=== PATIENT | female | born 1955 | race Caucasian/White ===

== ENCOUNTER 2020-09-13 09:56 | Inpatient (IN) | payer BC, MEDICARE, SELFPAY ==
[2020-09-13] VITALS (21 sets, daily range): BP systolic 95–134; BP diastolic 45–83; PULSE 85–118; RESP 13–25; TEMP 36–37; O2SAT 97–100; BMI 22.8
--- NOTE | ~2020-09-13 | US_ITS ---
EXAMINATION: US abdomen limited DATE: 09/17/2020 09:50 INDICATION: Elevated liver enzymes TECHNIQUE: Multiple grayscale and Doppler ultrasound images of the abdomen were obtained. COMPARISON: 12/22/2013 FINDINGS: The head and body of the pancreas are normal. The pancreatic tail is obscured by bowel gas. The liver demonstrates increased echogenicity and coarsened echotexture. There is nodularity of the liver surface. A moderate volume of ascites is present. Normal hepatopetal flow in the main portal ve in. The gallbladder is surgically absent. The normal common bile duct measures 5 mm. IMPRESSION: 1. Cirrhosis. 2. Ascites. Reviewed, dictated and finalized at location A. IMPRESSION: 1. Cirrhosis. 2. Ascites.
--- NOTE | ~2020-09-13 | XR_ITS ---
EXAMINATION: XR chest 1V portable DATE: 09/13/2020 10:50 INDICATION: Altered mental status and weakness. TECHNIQUE: frontal view of the chest was obtained. COMPARISON: Chest radiograph dated 02/04/2016 FINDINGS: The lungs remain clear with no focal airspace opacities, pulmonary edema, pleural effusion or pneumot horax. The cardiomediastinal silhouette is normal. Cholecystectomy clips in right upper quadrant. Par tially visualized IVC filter projecting along the right side of the L3 vertebral body. Moderate cervi ajyden and thoracic spondylosis. IMPRESSION: 1. No acute cardiopulmonary disease. Reviewed, dictated and finalized at location A.
--- NOTE | ~2020-09-13 | XR_ITS ---
EXAMINATION: XR foot RT min 3V DATE: 09/13/2020 12:44 INDICATION: Open wound on the plantar surface of the distal right forefoot. TECHNIQUE: Dorsoplantar, oblique and lateral views of the right foot were obtained. COMPARISON: None. FINDINGS: Lucent deep ulceration in the soft tissues plantar to the fifth metatarsophalangeal joint. Bone align ment is normal. No fracture. No cortical erosions or periosteal reaction to suggest osteomyelitis. Mo derate-sized plantar calcaneal spur. Minimal to mild polyarticular osteoarthritis throughout the righ t foot. Diffuse osteopenia. IMPRESSION: 1. Deep ulceration plantar to the right fifth metatarsophalangeal joint. No evident osteomyelitis. Reviewed, dictated and finalized at location A. IMPRESSION: 1. Deep ulceration plantar to the right fifth metatarsophalangeal joint. No jair dent osteomyelitis.
--- NOTE | ~2020-09-13 | CT_ITS ---
EXAMINATION: CTA chest PE protocol DATE: 09/23/2020 17:06 INDICATION: Tachycardia. Lung mass. TECHNIQUE: Computed tomography (CT) pulmonary angiogram of the chest was performed with 100 mL Omnipa que-350 intravenous contrast. Additional 3D reconstructions utilizing coronal maximum intensity proje ction (MIP) were performed. Automated exposure control and iterative reconstruction technique were em ployed. The dose-length product was 247.56 mGy-cm. COMPARISON: 12/09/2004 FINDINGS: Good contrast opacification of the pulmonary arteries. There is mild streak artifact from dense contr ast in the superior vena cava and right atrium. Mild scattered respiratory motion artifact which does not significantly limit evaluation. No pulmonary embolism. Moderate-sized left and small to moderate right pleural effusions. Complete collapse of the left lower lobe, partial collapse of the right low er lobe and mild dependent atelectasis in the posterior left upper lobe. There is homogeneous parench ymal enhancement of the collapsed portion of the lungs with no evident infarct. No pulmonary edema, p neumonia or other airspace disease within the aerated portions of the lung. There are few scattered s mall calcified pulmonary nodules along with calcified right hilar and mediastinal lymph nodes consist ent with old granulomatous disease. Heart size is normal. No pericardial effusion. Multinodular goite r with a couple nodules in the right thyroid measuring up to 9 mm. No pathologically enlarged thoraci c lymphadenopathy. Shrunken and nodular cirrhotic liver. Splenomegaly consistent with secondary port al venous hypertension. Small sliding-type hiatal hernia with wall thickening in the distal esophagus which could be related to reflux esophagitis or potentially gastroesophageal varices. Mesenteric pily ma and moderate amount of ascites in the visualized upper abdomen. Moderate thoracic spondylosis. IMPRESSION: 1. No pulmonary embolism. 2. Moderate-sized left and [id number] right pleural effusions with left lower lobar collapse, partial right lower lobar collapse and mild dependent atelectasis in the bilateral lower lobes. 3. Cirrhosis and portal venous hypertension with splenomegaly. 4. Small sliding-type hiatal hernia with wall thickening the distal esophagus which could relate to r eflux esophagitis or gastroesophageal varices. 5. Moderate amount of ascites in the upper abdomen. Reviewed, dictated and finalized at location A. IMPRESSION: 1. No pulmonary embolism. 2. Moderate-sized left and [id number] right pleural effusions with left lower lobar collapse, partial right lower lobar collapse and mild dependent ate lectasis in the bilateral lower lobes. 3. Cirrhosis and portal venous hypertension with splenomegaly. 4. Small sliding-type hiatal hernia with wall thickening the distal esophagus w hich could relate to reflux esophagitis or gastroesophageal varices. 5. Moderate amount of ascites in the upper abdomen.
--- NOTE | ~2020-09-13 | US_ITS ---
EXAMINATION: US paracentesis abd w/image DATE: 09/23/2020 16:58 INDICATION: Ascites. TECHNIQUE: The procedure and its risks, benefits, and alternatives were discussed with the patient. P otential risks discussed included bleeding and infection. The skin was prepped and draped in sterile fashion. 1% lidocaine was used for local anesthesia. Under ultrasound guidance, a 5 Fr catheter with trochar was advanced into the ascites in the left lower quadrant. Fluid was aspirated. The catheter w as removed, and a dressing was applied. There were no immediate complications. FINDINGS: Ultrasound images demonstrate ascites and the catheter within the fluid. IMPRESSION: 1. Successful ultrasound-guided paracentesis yielding 2050 mL of clear, yellow fluid. Reviewed, dictated and finalized at location A.
--- NOTE | ~2020-09-13 | CT_ITS ---
EXAMINATION: CT brain wo con DATE: 09/13/2020 12:37 INDICATION: Altered mental status. TECHNIQUE: Computed tomography (CT) of the head was performed without intravenous contrast. Sagittal and coronal reconstructions were performed. The mA was adjusted according to patient size. Iterative reconstruction technique was employed. The dose-length product was 605.33 mGy-cm. COMPARISON: head CT dated 02/04/2016 FINDINGS: Streak artifact surrounding an embolization coil in the suprasellar cistern to the left of midline. U nchanged small old lacunar infarct versus prominent perivascular space at the left lentiform nucleus. No acute intracranial hemorrhage, acute infarction or abnormal extra axial fluid collection. There i s mild scattered white matter hypoattenuation consistent with chronic small vessel ischemic disease. Ventricles are normal and symmetric. No mass/mass effect. The orbits, paranasal sinuses and mastoid a ir cells are normal. IMPRESSION: 1. No acute intracranial process. 2. Unchanged old lacunar infarct versus prominent perivascular space in the left lentiform nucleus. 3. Unchanged mild scattered nonspecific white matter hypoattenuation consistent with chronic small ve ssel ischemic disease. 4. Chronic embolization coil the left side of the suprasellar cistern. Correlate with neurosurgical h istory. Reviewed, dictated and finalized at location A. IMPRESSION: 1. No acute intracranial process. 2. Unchanged old lacunar infarct versus prominent perivascular space in the lef t lentiform nucleus. 3. Unchanged mild scattered nonspecific white matter hypoattenuation consistent with chronic small vessel ischemic disease. 4. Chronic embolization coil the left side of the suprasellar cistern. Correlat e with neurosurgical history.
--- NOTE | 2020-09-13 10:07 | PC.NURSE ---
Noted several ulcers to right foot/right hip. unaware when these began.
--- NOTE | 2020-09-13 10:09 | ECG_ITS ---
Measurements Intervals [place] Rate: 114 P: 77 IL: 146 QRS: 78 QRSD: 98 T: -4 QT: 365 QTc: 504 Interpretive Statements SINUS TACHYCARDIA ATRIAL AND VENTRICULAR PREMATURE COMPLEXES NONSPECIFIC ST & T-WAVE ABNORMALITY- ANTEROLAT/INF LEADS BASELINE ARTIFACT- I, II, III, AVR, AVL, AVF, V1-V6 ABNORMAL ECG Electronically Signed On 09-13-2020 10:51:41 CDT by Josh Feldman D.O.
[2020-09-13 10:26] LABS: Basophils Absolute Auto 0.1 K/mm3 (0.0-0.1); Basophils Percent Auto 0.3 % (0.2-1.2); Eosinophils Absolute Auto 0.2 K/mm3 (0-0.3); Eosinophils Percent Auto 0.7 % (0-4.4); Hematocrit 34.4 % (37.0-47.0); Hemoglobin 11.1 g/dL (12.0-15.0); Immature Granulocyte Absolute 0.28 K/mm3 (0.00-0.031); Immature Granulocyte Percent A 1.1 % (0-0.5); Lymphocytes Absolute Auto 1.36 K/mm3 (0.9-3.2); Lymphocytes Percent Auto 5.5 % (18.3-44.2); Mean Corpuscular HGB Conc 32.3 g/dl (32-36); Mean Corpuscular Hemoglobin 27.2 pg (26-34); Mean Corpuscular Volume 84.3 fl (80-100); Mean Platelet Volume 9.4 fl (7.4-10.4); Monocytes Absolute Auto 3.1 K/mm3 (0.1-0.6); Monocytes Percent Auto 12.5 % (2.6-8.5); Neutrophils Absolute Auto 19.8 K/mm3 (1.3-6.7); Neutrophils Percent Auto 79.9 % (45.5-73.1); Platelet Count Result 171 k/mm3 (150-375); Red Blood Count 4.08 M/mm3 (4.2-5.4); Red Cell Distribution Width 16.1 % (11.5-14.5); White Blood Count 24.8 K/mm3 (4.5-10.0)
[2020-09-13 10:33] LABS: Lactic Acid Reflex 1.9 mmol/L (0.7-2.1)
[2020-09-13 10:44] LABS: INR 1.5; Partial Thromboplastin Time 29.1 SECONDS (22.3-36.8); Prothrombin Time 18.2 Seconds (11.1-14.7)
[2020-09-13 10:50] LABS: Alanine Aminotransferase 81 U/L (4-35); Albumin Level 2.6 g/dL (3.5-5.1); Alkaline Phosphatase 65 U/L (38-126); Anion Gap 9 mmol/L (8-16); Aspartate Amino Transferase 73 U/L (14-36); Bilirubin,Total 0.8 mg/dL (0.2-1.3); Blood Urea Nitrogen 31 mg/dL (7-17); CRP 7.9 mg/dL (<1.0); Calcium 8.3 mg/dL (8.4-10.2); Carbon Dioxide 22 mmol/L (22-30); Chloride 102 mmol/L (98-107); Estimated CRCL calculation 62 ml/min; Estimated Glomerular Filt Rate > 60; Glucose 82 mg/dL (65-110); Potassium 3.9 mmol/L (3.4-5.0); Sodium 133 mmol/L (137-145)
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
[2020-09-13 10:58] LABS: Add Urine Microscopic? YES; Appearance Urine Clear (Clear); Bilirubin Urine Negative (Negative); Blood Urine Negative (Negative); Color Urine Amber (Yellow); Glucose Urine UA Negative (Negative); Ketones Urine Negative (Negative); Leukocyte Esterase Ur Trace LEU/UL (Negative); Mucus Urine Rare /lpf; Nitrate Urine Negative (Negative); Protein Urine Negative (Negative); Squamous Epithelial Cell Urine Rare /hpf (Few)
[2020-09-13 11:03] LABS: Platelet Estimate Adequate (Adequate); Poikilocytosis 1+ (NORMAL)
[2020-09-13 11:04] LABS: Ovalocytes 1+ (NORMAL)
[2020-09-13 12:55] LABS: Creatine Kinase 899 U/L (30-135)
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
[2020-09-13] MEDS: SODIUM CHLORIDE 0.9% IV 1,000 ML 999 ML IV CONT (14:00)
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
[2020-09-13] MEDS: SODIUM CHLORIDE 0.9% IV 1,000 ML 125 ML IV CONT (17:15)
--- NOTE | 2020-09-13 19:15 | PC.NURSE ---
[id number] Admission Note: The patient,Xochitl Riley,64 y/o, was given written information regarding hospital policies, unit procedures and contact persons. Patient's smoking status: .
[2020-09-13] MEDS: TOLNAFTATE 1% POWDER 45 GM BTL 1 APPLIC TOPICAL (20:50)
[2020-09-13] MEDS: SILVERGEL (ELTA) 45 ML 1 APPLIC TOPICAL (20:50)
[2020-09-13] MEDS: HYDROGEN PEROXIDE 3% SOLN(*SP) 473 ML BOTTLE IRRIGATION (20:58)
[2020-09-13] MEDS: MORPHINE SULFATE (*CRX) 4 MG/ML INJ 2 MG IV PUSH (21:20)
[2020-09-14] MEDS: SODIUM CHLORIDE 0.9% IV 1,000 ML 125 ML IV CONT ×2 (04:49→16:40)
[2020-09-14 05:12] VITALS: BP 131/61; PULSE 105; RESP 18; TEMP 37.3; O2SAT 97
[2020-09-14] MEDS: MORPHINE SULFATE (*CRX) 4 MG/ML INJ 2 MG IV PUSH ×3 (05:39→17:29)
[2020-09-14 05:41] LABS: Basophils Percent Auto 0.1 % (0.2-1.2); Eosinophils Absolute Auto 0.8 K/mm3 (0-0.3); Eosinophils Percent Auto 5.5 % (0-4.4); Hematocrit 30.4 % (37.0-47.0); Hemoglobin 10.1 g/dL (12.0-15.0); Immature Granulocyte Absolute 0.08 K/mm3 (0.00-0.031); Immature Granulocyte Percent A 0.6 % (0-0.5); Lymphocytes Absolute Auto 1.99 K/mm3 (0.9-3.2); Lymphocytes Percent Auto 13.7 % (18.3-44.2); Mean Corpuscular HGB Conc 33.2 g/dl (32-36); Mean Corpuscular Hemoglobin 27.3 pg (26-34); Mean Corpuscular Volume 82.2 fl (80-100); Mean Platelet Volume 9.5 fl (7.4-10.4); Monocytes Absolute Auto 2.2 K/mm3 (0.1-0.6); Monocytes Percent Auto 15.1 % (2.6-8.5); Neutrophils Absolute Auto 9.4 K/mm3 (1.3-6.7); Platelet Count Result 158 k/mm3 (150-375); White Blood Count 14.5 K/mm3 (4.5-10.0)
[2020-09-14 05:51] LABS: Alanine Aminotransferase 67 U/L (4-35); Albumin Level 2.1 g/dL (3.5-5.1); Alkaline Phosphatase 61 U/L (38-126); Anion Gap 7 mmol/L (8-16); Aspartate Amino Transferase 49 U/L (14-36); Bilirubin,Total 0.6 mg/dL (0.2-1.3); Blood Urea Nitrogen 17 mg/dL (7-17); Calcium 7.8 mg/dL (8.4-10.2); Carbon Dioxide 22 mmol/L (22-30); Chloride 105 mmol/L (98-107); Creatine Kinase 307 U/L (30-135); Estimated CRCL calculation 62 ml/min; Estimated Glomerular Filt Rate > 60; Glucose 69 mg/dL (65-110); Potassium 3.2 mmol/L (3.4-5.0); Sodium 134 mmol/L (137-145)
[2020-09-14 07:58] LABS: Glucose Point of Care 78 mg/dl (65-105)
[2020-09-14] MEDS: MULTIVITAMINS THERAPEUTIC TAB (*BKC) 1 TABLET BY MOUTH (08:02)
[2020-09-14] MEDS: FERROUS SULFATE 324 MG TABLET PO (08:02)
[2020-09-14 08:05] LABS: Magnesium 1.6 mg/dL (1.6-2.3)
[2020-09-14] MEDS: TOLNAFTATE 1% POWDER 45 GM BTL 1 APPLIC TOPICAL ×2 (08:06→22:48)
[2020-09-14] MEDS: SILVER NITRATE (*SP) STICK 3 EACH TOPICAL (11:00)
[2020-09-14] MEDS: LIDO 2%/EPINEPHRINE 1:100,000 20 ML VIAL 30 ML INFILTRATE (11:08)
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
[2020-09-14] MEDS: COLLAGENASE OINT 30 GM TUBE 1 APPLIC TOPICAL (12:57)
--- NOTE | 2020-09-14 13:11 | PCOTNOTE ---
Attempted OT evaluation this date; per RN hold today as pt. is in a lot of pain and recently returned from debridement surgery. Will attempt again tomorrow as able.
--- NOTE | 2020-09-14 13:55 | PCPTNOTE ---
Attempted PT evvenus. RN stated to hold therapy due to debridement. Will try again tomorrow.
[2020-09-14 14:00] VITALS: BP 106/70; PULSE 116; RESP 20; TEMP 36.1; O2SAT 100
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
[2020-09-14] MEDS: HYDROcodone/acetaminophen (*CRX) 5-325 MG TABLET 1 TAB PO ×2 (15:00→19:41)
[2020-09-14] MEDS: LACTIC ACID 12% LOTION 225 BTL 1 APPLIC TOPICAL (16:41)
[2020-09-14 19:34] VITALS: BP 125/71; PULSE 66; RESP 17; TEMP 36.1; O2SAT 97
[2020-09-15 02:38] LABS: Vancomycin Trough 12.5 ug/mL (10.0-20.0)
[2020-09-15] MEDS: MORPHINE SULFATE (*CRX) 4 MG/ML INJ 2 MG IV PUSH ×3 (03:01→20:24)
[2020-09-15] MEDS: SODIUM CHLORIDE 0.9% IV 1,000 ML 125 ML IV CONT ×2 (03:04→13:48)
[2020-09-15 05:59] VITALS: BP 132/83; PULSE 87; RESP 17; TEMP 36.5; O2SAT 98
[2020-09-15] MEDS: HYDROcodone/acetaminophen (*CRX) 5-325 MG TABLET 1 TAB PO ×2 (06:31→22:55)
[2020-09-15 06:37] LABS: Hematocrit 32.7 % (37.0-47.0); Hemoglobin 10.1 g/dL (12.0-15.0); Mean Corpuscular HGB Conc 30.9 g/dl (32-36); Mean Corpuscular Hemoglobin 26.7 pg (26-34); Mean Corpuscular Volume 86.5 fl (80-100); Mean Platelet Volume 9.3 fl (7.4-10.4); Platelet Count Result 127 k/mm3 (150-375); Red Blood Count 3.78 M/mm3 (4.2-5.4); Red Cell Distribution Width 16.3 % (11.5-14.5); White Blood Count 12.6 K/mm3 (4.5-10.0)
[2020-09-15 06:51] LABS: Estimated CRCL calculation 73 ml/min; Estimated Glomerular Filt Rate > 60; Magnesium 1.5 mg/dL (1.6-2.3)
[2020-09-15] MEDS: MULTIVITAMINS THERAPEUTIC TAB (*BKC) 1 TABLET BY MOUTH (07:48)
[2020-09-15] MEDS: TOLNAFTATE 1% POWDER 45 GM BTL 1 APPLIC TOPICAL (07:48)
[2020-09-15] MEDS: LACTIC ACID 12% LOTION 225 BTL 1 APPLIC TOPICAL (07:48)
[2020-09-15] MEDS: ENOXAPARIN 40 MG/0.4 ML SYRINGE SUB-Q (07:48)
[2020-09-15] MEDS: FERROUS SULFATE 324 MG TABLET PO (07:48)
[2020-09-15 10:00] VITALS: BMI 10.0
[2020-09-15 11:08] VITALS: BMI 22.8
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
[2020-09-15] MEDS: COLLAGENASE OINT 30 GM TUBE 1 APPLIC TOPICAL (13:05)
[2020-09-15] MEDS: MAGNESIUM SULF 4 GM/WATER100ML 4 GM/100 ML BAG IVPB (13:48)
[2020-09-15 14:00] VITALS: BP 104/62; PULSE 114; RESP 18; TEMP 35.7; O2SAT 97
[2020-09-15] MEDS: WATER FOR IRRIGATION, STERILE 1,000 ML BOTTLE 1000 ML (16:54)
[2020-09-15 19:50] VITALS: BP 146/81; PULSE 113; RESP 20; TEMP 36.4; O2SAT 97
[2020-09-15 19:56] LABS: Prealbumin < 3.0 mg/dL (17.6-36.0)
[2020-09-15 21:14] VITALS: O2SAT 97
[2020-09-16] MEDS: SODIUM CHLORIDE 0.9% IV 1,000 ML 125 ML IV CONT ×3 (01:13→20:23)
[2020-09-16] MEDS: MORPHINE SULFATE (*CRX) 4 MG/ML INJ 2 MG IV PUSH ×4 (02:52→20:22)
[2020-09-16] MEDS: HYDROcodone/acetaminophen (*CRX) 5-325 MG TABLET 1 TAB PO (05:27)
[2020-09-16 05:30] VITALS: BP 153/87; PULSE 118; RESP 16; TEMP 36.6; O2SAT 96
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
[2020-09-16 09:58] LABS: Hematocrit 32.6 % (37.0-47.0); Hemoglobin 10.2 g/dL (12.0-15.0); Mean Corpuscular HGB Conc 31.3 g/dl (32-36); Mean Corpuscular Hemoglobin 26.8 pg (26-34); Mean Corpuscular Volume 85.6 fl (80-100); Mean Platelet Volume 9.8 fl (7.4-10.4); Platelet Count Result 124 k/mm3 (150-375); Red Blood Count 3.81 M/mm3 (4.2-5.4); Red Cell Distribution Width 16.1 % (11.5-14.5); White Blood Count 10.4 K/mm3 (4.5-10.0)
[2020-09-16] MEDS: SILVERGEL (ELTA) 45 ML 1 APPLIC TOPICAL (10:00)
[2020-09-16] MEDS: LACTIC ACID 12% LOTION 225 BTL 1 APPLIC TOPICAL (10:00)
[2020-09-16] MEDS: COLLAGENASE OINT 30 GM TUBE 1 APPLIC TOPICAL (10:00)
[2020-09-16 10:16] LABS: Alanine Aminotransferase 59 U/L (4-35); Albumin Level 2.2 g/dL (3.5-5.1); Alkaline Phosphatase 61 U/L (38-126); Anion Gap 4 mmol/L (8-16); Aspartate Amino Transferase 42 U/L (14-36); Bilirubin,Total 0.4 mg/dL (0.2-1.3); Blood Urea Nitrogen 12 mg/dL (7-17); Calcium 7.3 mg/dL (8.4-10.2); Carbon Dioxide 24 mmol/L (22-30); Chloride 107 mmol/L (98-107); Estimated CRCL calculation 89 ml/min; Estimated Glomerular Filt Rate > 60; Glucose 91 mg/dL (65-110); Potassium 3.8 mmol/L (3.4-5.0); Sodium 135 mmol/L (137-145)
[2020-09-16] MEDS: ENOXAPARIN 40 MG/0.4 ML SYRINGE SUB-Q (10:30)
[2020-09-16] MEDS: FERROUS SULFATE 324 MG TABLET PO (10:30)
[2020-09-16] MEDS: MULTIVITAMINS THERAPEUTIC TAB (*BKC) 1 TABLET BY MOUTH (10:30)
--- NOTE | 2020-09-16 10:34 | PCPTNOTE ---
Attempted therapy session at 10:30, Pt refused at this time due to just finishing with dressing changes and has increased pain. Will attempt therapy again.
[2020-09-16 14:27] VITALS: BP 146/84; PULSE 119; RESP 16; TEMP 35.6
[2020-09-16 16:23] LABS: Vancomycin Trough 16.1 ug/mL (10.0-20.0)
[2020-09-16 17:00] VITALS: TEMP 36.8
[2020-09-16 20:46] VITALS: BP 158/94; PULSE 123; RESP 18; TEMP 36.7; O2SAT 94
[2020-09-17] MEDS: SODIUM CHLORIDE 0.9% IV 1,000 ML 125 ML IV CONT (05:10)
[2020-09-17 05:19] VITALS: BP 156/83; PULSE 120; RESP 20; TEMP 36.4; O2SAT 95
[2020-09-17] MEDS: ENOXAPARIN 40 MG/0.4 ML SYRINGE SUB-Q (07:58)
[2020-09-17] MEDS: FERROUS SULFATE 324 MG TABLET PO (07:59)
[2020-09-17] MEDS: MULTIVITAMINS THERAPEUTIC TAB (*BKC) 1 TABLET BY MOUTH (07:59)
[2020-09-17] MEDS: COLLAGENASE OINT 30 GM TUBE 1 APPLIC TOPICAL (07:59)
[2020-09-17] MEDS: LACTIC ACID 12% LOTION 225 BTL 1 APPLIC TOPICAL (08:00)
--- NOTE | 2020-09-17 08:39 | ECG_ITS ---
Measurements Intervals [place] Rate: 116 P: 19 AK: 142 QRS: 19 QRSD: 89 T: 34 QT: 333 QTc: 463 Interpretive Statements SINUS TACHYCARDIA NONSPECIFIC ST & T-WAVE ABNORMALITY- DIFFUSE LEADS BASELINE ARTIFACT- V5 ABNORMAL ECG Electronically Signed On 09-17-2020 9:10:18 CDT by Josh Feldman D.O.
[2020-09-17 09:35] LABS: INR 1.5; Prothrombin Time 17.5 Seconds (11.1-14.7)
[2020-09-17 10:07] LABS: Magnesium 1.7 mg/dL (1.6-2.3)
[2020-09-17 10:36] LABS: Creatine Kinase 150 U/L (30-135)
[2020-09-17 10:44] LABS: Hepatitis B Surface Antigen Negative (Negative)
[2020-09-17 10:49] LABS: HAV RESULT Negative (Negative); Hepatitis B Core IgM Result Negative (Negative)
[2020-09-17 11:01] LABS: Hepatitis C Virus Antibody Negative (Negative)
[2020-09-17] MEDS: HYDROcodone/acetaminophen (*CRX) 5-325 MG TABLET 1 TAB PO ×2 (12:07→21:17)
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
[2020-09-17 13:59] VITALS: PULSE 82
[2020-09-17] MEDS: METOPROLOL SUCCINATE EXT REL 50 MG TABCR PO (13:59)
[2020-09-17 14:00] VITALS: BP 147/101; PULSE 119; RESP 20; TEMP 35.9; O2SAT 96
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
[2020-09-17 21:14] VITALS: BP 148/90; PULSE 112; RESP 16; TEMP 36.3; O2SAT 98
[2020-09-17 21:55] VITALS: O2SAT 95
[2020-09-18] MEDS: MORPHINE SULFATE (*CRX) 4 MG/ML INJ 2 MG IV PUSH (00:24)
[2020-09-18 06:00] VITALS: BP 170/96; PULSE 96; RESP 20; TEMP 36.6; O2SAT 97
[2020-09-18 06:07] LABS: Basophils Percent Auto 0.4 % (0.2-1.2); Eosinophils Absolute Auto 0.7 K/mm3 (0-0.3); Hematocrit 35.5 % (37.0-47.0); Hemoglobin 11.3 g/dL (12.0-15.0); Immature Granulocyte Absolute 0.08 K/mm3 (0.00-0.031); Immature Granulocyte Percent A 0.8 % (0-0.5); Lymphocytes Absolute Auto 1.41 K/mm3 (0.9-3.2); Mean Corpuscular HGB Conc 31.8 g/dl (32-36); Mean Corpuscular Volume 84.7 fl (80-100); Mean Platelet Volume 9.9 fl (7.4-10.4); Monocytes Absolute Auto 1.6 K/mm3 (0.1-0.6); Monocytes Percent Auto 15.5 % (2.6-8.5); Neutrophils Absolute Auto 6.3 K/mm3 (1.3-6.7); Neutrophils Percent Auto 62.3 % (45.5-73.1); Platelet Count Result 112 k/mm3 (150-375); Red Blood Count 4.19 M/mm3 (4.2-5.4); White Blood Count 10.1 K/mm3 (4.5-10.0)
[2020-09-18 06:29] LABS: Alanine Aminotransferase 51 U/L (4-35); Albumin Level 2.3 g/dL (3.5-5.1); Alkaline Phosphatase 85 U/L (38-126); Anion Gap 2 mmol/L (8-16); Aspartate Amino Transferase 38 U/L (14-36); Bilirubin,Total 0.5 mg/dL (0.2-1.3); Blood Urea Nitrogen 14 mg/dL (7-17); CRP 3.4 mg/dL (<1.0); Calcium 7.8 mg/dL (8.4-10.2); Carbon Dioxide 27 mmol/L (22-30); Chloride 105 mmol/L (98-107); Estimated CRCL calculation 73 ml/min; Estimated Glomerular Filt Rate > 60; Glucose 95 mg/dL (65-110); Magnesium 1.7 mg/dL (1.6-2.3); Potassium 3.8 mmol/L (3.4-5.0); Sodium 134 mmol/L (137-145)
[2020-09-18 08:15] VITALS: PULSE 96
[2020-09-18] MEDS: MULTIVITAMINS THERAPEUTIC TAB (*BKC) 1 TABLET BY MOUTH (08:15)
[2020-09-18] MEDS: FERROUS SULFATE 324 MG TABLET PO (08:15)
[2020-09-18] MEDS: METOPROLOL SUCCINATE EXT REL 50 MG TABCR PO (08:15)
[2020-09-18] MEDS: HYDROcodone/acetaminophen (*CRX) 5-325 MG TABLET 1 TAB PO ×2 (08:18→17:07)
[2020-09-18] MEDS: ENOXAPARIN 40 MG/0.4 ML SYRINGE SUB-Q (08:24)
[2020-09-18] MEDS: LACTIC ACID 12% LOTION 225 BTL 1 APPLIC TOPICAL (08:25)
[2020-09-18] MEDS: COLLAGENASE OINT 30 GM TUBE 1 APPLIC TOPICAL (08:25)
[2020-09-18] MEDS: lisinopriL 20 MG TABLET 40 MG PO (10:18)
--- NOTE | 2020-09-18 10:23 | PCNFU ---
Nutrition Follow-Up Complete: Increased protein needs as related to wounds as evidenced by PU reported. Goal: Adequate Intake of at least 75% of meals/supplements Progressing towards goal. We will continue current goal. Pt current nutrition is Heart Healthy with Jose BID and Ensure Compact BID. Last recorded weight is 56.6 kg, no new weight to report since admit. Bowel Motility:+BM reported 09/17 Labs Reviewed:Cr 0.5,Hct 35.5,Hgb 11.3,Na 134 Meds Noted:MVI,Zofran,Toprol, Lovenox,Primaxin. Additional Notes: Nutrition follow up. Patient eating breakfast this morning. States to likes both diet supplements being provided. Overall intake has been 75% of heart healthy diet. Skin: Decub ulcer-buttock. Monitoring: RD will monitor every 5 days.
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
[2020-09-18 14:00] VITALS: BP 143/90; PULSE 88; RESP 18; TEMP 36; O2SAT 97
[2020-09-18 20:57] VITALS: BP 153/95; PULSE 106; RESP 18; TEMP 35.6; O2SAT 96
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
[2020-09-18 23:39] VITALS: O2SAT 97
[2020-09-19 05:02] VITALS: BP 157/99; PULSE 102; RESP 18; TEMP 35.7; O2SAT 99
[2020-09-19 05:58] LABS: Basophils Absolute Auto 0.1 K/mm3 (0.0-0.1); Basophils Percent Auto 0.4 % (0.2-1.2); Eosinophils Absolute Auto 0.6 K/mm3 (0-0.3); Eosinophils Percent Auto 5.4 % (0-4.4); Hemoglobin 10.7 g/dL (12.0-15.0); Immature Granulocyte Absolute 0.05 K/mm3 (0.00-0.031); Immature Granulocyte Percent A 0.4 % (0-0.5); Immature Platelet Fraction Pct 2.9 % (0.9-11.2); Lymphocytes Absolute Auto 1.47 K/mm3 (0.9-3.2); Lymphocytes Percent Auto 12.7 % (18.3-44.2); Mean Corpuscular HGB Conc 31.5 g/dl (32-36); Mean Corpuscular Hemoglobin 26.9 pg (26-34); Mean Corpuscular Volume 85.4 fl (80-100); Mean Platelet Volume 9.9 fl (7.4-10.4); Monocytes Absolute Auto 1.7 K/mm3 (0.1-0.6); Monocytes Percent Auto 14.6 % (2.6-8.5); Neutrophils Absolute Auto 7.7 K/mm3 (1.3-6.7); Neutrophils Percent Auto 66.5 % (45.5-73.1); Platelet Count Result 127 k/mm3 (150-375); Red Blood Count 3.98 M/mm3 (4.2-5.4); White Blood Count 11.6 K/mm3 (4.5-10.0)
[2020-09-19 06:05] LABS: Alanine Aminotransferase 41 U/L (4-35); Albumin Level 2.1 g/dL (3.5-5.1); Alkaline Phosphatase 79 U/L (38-126); Anion Gap 4 mmol/L (8-16); Aspartate Amino Transferase 36 U/L (14-36); Bilirubin,Total 0.3 mg/dL (0.2-1.3); Blood Urea Nitrogen 16 mg/dL (7-17); Calcium 7.6 mg/dL (8.4-10.2); Carbon Dioxide 27 mmol/L (22-30); Chloride 100 mmol/L (98-107); Creatine Kinase 84 U/L (30-135); Estimated CRCL calculation 73 ml/min; Estimated Glomerular Filt Rate > 60; Glucose 106 mg/dL (65-110); Potassium 3.6 mmol/L (3.4-5.0); Sodium 131 mmol/L (137-145)
[2020-09-19 08:00] VITALS: PULSE 102; RESP 18; O2SAT 99
[2020-09-19 08:29] LABS: Glucose Point of Care 81 mg/dl (65-105)
[2020-09-19] MEDS: ENOXAPARIN 40 MG/0.4 ML SYRINGE SUB-Q (09:15)
[2020-09-19 09:19] VITALS: PULSE 102
[2020-09-19] MEDS: METOPROLOL SUCCINATE EXT REL 50 MG TABCR PO (09:19)
[2020-09-19] MEDS: FERROUS SULFATE 324 MG TABLET PO (09:19)
[2020-09-19] MEDS: MULTIVITAMINS THERAPEUTIC TAB (*BKC) 1 TABLET BY MOUTH (09:19)
[2020-09-19] MEDS: lisinopriL 20 MG TABLET 40 MG PO (09:19)
[2020-09-19] MEDS: FUROSEMIDE 40 MG TABLET PO (09:19)
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
[2020-09-19 12:21] LABS: Glucose Point of Care 161 mg/dl (65-105)
[2020-09-19] MEDS: LACTIC ACID 12% LOTION 225 BTL 1 APPLIC TOPICAL (13:08)
[2020-09-19] MEDS: SILVERGEL (ELTA) 45 ML 1 APPLIC TOPICAL (13:08)
[2020-09-19] MEDS: COLLAGENASE OINT 30 GM TUBE 1 APPLIC TOPICAL (13:08)
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
[2020-09-19 14:43] VITALS: BP 148/83; PULSE 114; RESP 16; TEMP 36.8; O2SAT 95
[2020-09-19 15:14] LABS: Vancomycin Trough 24.8 ug/mL (10.0-20.0)
[2020-09-19 22:00] VITALS: BP 122/77; PULSE 112; RESP 18; TEMP 36.7; O2SAT 97
[2020-09-19] MEDS: MORPHINE SULFATE (*CRX) 4 MG/ML INJ 2 MG IV PUSH (22:37)
[2020-09-20 06:00] VITALS: BP 136/85; PULSE 114; RESP 16; TEMP 36.1; O2SAT 95
[2020-09-20 06:15] LABS: Basophils Absolute Auto 0.1 K/mm3 (0.0-0.1); Basophils Percent Auto 0.4 % (0.2-1.2); Eosinophils Absolute Auto 0.4 K/mm3 (0-0.3); Eosinophils Percent Auto 3.2 % (0-4.4); Hematocrit 34.3 % (37.0-47.0); Immature Granulocyte Absolute 0.04 K/mm3 (0.00-0.031); Immature Granulocyte Percent A 0.3 % (0-0.5); Lymphocytes Percent Auto 11.9 % (18.3-44.2); Mean Corpuscular HGB Conc 32.1 g/dl (32-36); Mean Corpuscular Volume 84.1 fl (80-100); Mean Platelet Volume 9.9 fl (7.4-10.4); Monocytes Percent Auto 15.1 % (2.6-8.5); Neutrophils Absolute Auto 9.3 K/mm3 (1.3-6.7); Neutrophils Percent Auto 69.1 % (45.5-73.1); Platelet Count Result 126 k/mm3 (150-375); Red Blood Count 4.08 M/mm3 (4.2-5.4); Red Cell Distribution Width 16.4 % (11.5-14.5); White Blood Count 13.4 K/mm3 (4.5-10.0)
[2020-09-20 06:26] LABS: Alanine Aminotransferase 38 U/L (4-35); Albumin Level 2.4 g/dL (3.5-5.1); Alkaline Phosphatase 89 U/L (38-126); Anion Gap 4 mmol/L (8-16); Aspartate Amino Transferase 37 U/L (14-36); Bilirubin,Total 0.4 mg/dL (0.2-1.3); Blood Urea Nitrogen 20 mg/dL (7-17); Calcium 7.7 mg/dL (8.4-10.2); Carbon Dioxide 28 mmol/L (22-30); Chloride 101 mmol/L (98-107); Estimated CRCL calculation 73 ml/min; Estimated Glomerular Filt Rate > 60; Glucose 85 mg/dL (65-110); Potassium 3.7 mmol/L (3.4-5.0); Sodium 133 mmol/L (137-145)
--- NOTE | 2020-09-20 07:15 | ECG_ITS ---
Measurements Intervals [place] Rate: 119 P: 10 [place]: 142 QRS: 9 QRSD: 89 T: 37 QT: 304 QTc: 428 Interpretive Statements SINUS TACHYCARDIA ATRIAL PREMATURE COMPLEX DELAYED PRECORDIAL R/S TRANSITION BORDERLINE ST-T WAVE ABNORMALITY- HIGH LATERAL LEADS BASELINE ARTIFACT- II, III, AVF, V2 ABNORMAL ECG Electronically Signed On 09-20-2020 16:46:46 CDT by Josh Feldman D.O.
[2020-09-20 07:31] LABS: Glucose Point of Care 83 mg/dl (65-105)
[2020-09-20 08:26] VITALS: PULSE 100
[2020-09-20] MEDS: MULTIVITAMINS THERAPEUTIC TAB (*BKC) 1 TABLET BY MOUTH (08:26)
[2020-09-20] MEDS: METOPROLOL SUCCINATE EXT REL 50 MG TABCR PO (08:26)
[2020-09-20] MEDS: FERROUS SULFATE 324 MG TABLET PO (08:26)
[2020-09-20] MEDS: lisinopriL 20 MG TABLET 40 MG PO (08:26)
[2020-09-20] MEDS: FUROSEMIDE 40 MG TABLET PO (08:27)
[2020-09-20] MEDS: ENOXAPARIN 40 MG/0.4 ML SYRINGE SUB-Q (08:27)
[2020-09-20] MEDS: LACTIC ACID 12% LOTION 225 BTL 1 APPLIC TOPICAL (08:27)
[2020-09-20] MEDS: COLLAGENASE OINT 30 GM TUBE 1 APPLIC TOPICAL (08:28)
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
[2020-09-20 12:03] VITALS: PULSE 110
[2020-09-20] MEDS: METOPROLOL SUCCINATE EXT REL 12.5 MG TABCR PO (12:03)
[2020-09-20] MEDS: VANCOMYCIN ORAL 125 MG/2.5 ML SYRUP PO ×2 (12:03→17:19)
[2020-09-20 14:00] VITALS: BP 118/74; PULSE 115; RESP 20; TEMP 36.2; O2SAT 97
[2020-09-20 21:03] VITALS: BP 141/76; PULSE 116; RESP 16; TEMP 36; O2SAT 94
[2020-09-21] MEDS: VANCOMYCIN ORAL 125 MG/2.5 ML SYRUP PO ×5 (00:43→23:25)
[2020-09-21 06:00] VITALS: BP 132/84; PULSE 112; RESP 16; TEMP 35.9; O2SAT 96
[2020-09-21 07:52] VITALS: PULSE 84; O2SAT 96
[2020-09-21] MEDS: FUROSEMIDE 40 MG TABLET PO (09:18)
[2020-09-21 09:19] VITALS: PULSE 88
[2020-09-21] MEDS: ENOXAPARIN 40 MG/0.4 ML SYRINGE SUB-Q (09:19)
[2020-09-21] MEDS: lisinopriL 20 MG TABLET 40 MG PO (09:19)
[2020-09-21] MEDS: LACTIC ACID 12% LOTION 225 BTL 1 APPLIC TOPICAL (09:19)
[2020-09-21] MEDS: MULTIVITAMINS THERAPEUTIC TAB (*BKC) 1 TABLET BY MOUTH (09:19)
[2020-09-21] MEDS: METOPROLOL SUCCINATE EXT REL 50 MG TABCR PO (09:19)
[2020-09-21] MEDS: COLLAGENASE OINT 30 GM TUBE 1 APPLIC TOPICAL (09:19)
[2020-09-21] MEDS: FERROUS SULFATE 324 MG TABLET PO (09:19)
[2020-09-21] MEDS: HYDROcodone/acetaminophen (*CRX) 5-325 MG TABLET 1 TAB PO (09:56)
[2020-09-21 09:57] VITALS: PULSE 88
[2020-09-21] MEDS: METOPROLOL SUCCINATE EXT REL 12.5 MG TABCR PO (09:57)
[2020-09-21] MEDS: SPIRONOLACTONE 12.5 MG TABLET PO (09:57)
[2020-09-21 10:10] LABS: Basophils Absolute Auto 0.1 K/mm3 (0.0-0.1); Basophils Percent Auto 0.5 % (0.2-1.2); Eosinophils Absolute Auto 0.4 K/mm3 (0-0.3); Hematocrit 36.8 % (37.0-47.0); Hemoglobin 11.5 g/dL (12.0-15.0); Immature Granulocyte Absolute 0.06 K/mm3 (0.00-0.031); Immature Granulocyte Percent A 0.5 % (0-0.5); Lymphocytes Percent Auto 10.9 % (18.3-44.2); Mean Corpuscular HGB Conc 31.3 g/dl (32-36); Mean Corpuscular Hemoglobin 26.7 pg (26-34); Mean Corpuscular Volume 85.6 fl (80-100); Mean Platelet Volume 10.4 fl (7.4-10.4); Monocytes Absolute Auto 1.3 K/mm3 (0.1-0.6); Monocytes Percent Auto 9.9 % (2.6-8.5); Neutrophils Absolute Auto 9.6 K/mm3 (1.3-6.7); Neutrophils Percent Auto 75.2 % (45.5-73.1); Platelet Count Result 137 k/mm3 (150-375); Red Cell Distribution Width 17.1 % (11.5-14.5); White Blood Count 12.8 K/mm3 (4.5-10.0)
[2020-09-21 10:11] LABS: Alanine Aminotransferase 40 U/L (4-35); Albumin Level 2.8 g/dL (3.5-5.1); Alkaline Phosphatase 95 U/L (38-126); Aspartate Amino Transferase 42 U/L (14-36); Bilirubin,Total 0.6 mg/dL (0.2-1.3)
[2020-09-21 10:13] LABS: Vancomycin Trough 6.3 ug/mL (10.0-20.0)
[2020-09-21 14:00] VITALS: BP 118/78; PULSE 121; RESP 20; TEMP 37.2; O2SAT 94
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
[2020-09-21 19:51] VITALS: BP 127/76; PULSE 123; RESP 16; TEMP 36.1; O2SAT 94
[2020-09-22] VITALS (8 sets, daily range): BP systolic 117–141; BP diastolic 71–89; PULSE 76–122; RESP 18; TEMP 36–37.7; O2SAT 94–96
--- NOTE | 2020-09-22 | ECHO_ITS ---
Patient Info Name: Xochitl Riley Age: 64 years : 1955 Gender: Female Ht: 62 in Wt: 124 lbs BSA: 1.57 m2 HR: 110 bpm BP: 141 / 89 mmHg Technical Quality: Fair Exam Date: 09/22/2020 10:51 AM Exam Location: [facility] Patient Status: Inpatient Admit Date: 09/14/2020 Staff Ordering Physician: María Zepeda PA-C Oncology Nurse Navigator: Annette Lincoln RDCS Attending Provider: María Zepeda PA-C Referring Physician: Duane JAMISON; Exam Type: CA echo doppler color flow Study Info Indications R00.0 - Tachycardia, unspecified Complete two-dimensional, color flow and Doppler transthoracic echocardiogram is performed. Summary 1. Complete two-dimensional, color flow and Doppler transthoracic echocardiogram is performed. 2. Left ventricular chamber dimension is normal. 3. Left ventricular systolic function is normal, estimated at 60-65%. 4. The left ventricular diastolic function is grade I diastolic dysfunction. 5. E/e' 7 is not elevated. 6. Global longitudinal strain is abnormal at -14.3%. 7. Left atrial chamber dimension is moderately enlarged. 8. There is mild aortic valve sclerosis. 9. Mild pulmonary hypertension, estimated pulmonary arterial systolic pressure is 41 mmHg. 10. Left pleural effusion with large mass measuring 5.4 cm x 5.9 cm. This could be coagulated fluid suggesting chronicity. Recommend CT chest if clinically indicated. 11. There is trivial pericardial effusion. Left Ventricle Global longitudinal strain is abnormal at -14.3%. E/e' 7 is not elevated. Left ventricular chamber dimension is normal. Left ventricular systolic function is normal, estimated at 60-65%. The left ventricular diastolic function is grade I diastolic dysfunction. Right Ventricle Right ventricular systolic function is normal and with normal TAPSE 2.1 cm. Right ventricular chamber dimension is normal. Left Atria Left atrial chamber dimension is moderately enlarged. Right Atria Right atrial chamber dimension is normal. Aortic Valve The aortic valve is trileaflet. There is mild aortic valve sclerosis. There is no aortic valve stenosis. There is no aortic valve regurgitation. Pulmonic Valve There is no pulmonic regurgitation. Mitral Valve There is no mitral valve stenosis. There is no mitral valve regurgitation. Tricuspid Valve There is no tricuspid valve regurgitation. Mild pulmonary hypertension, estimated pulmonary arterial systolic pressure is 41 mmHg. Pericardium/Pleural Left pleural effusion with large mass measuring 5.4 cm x 5.9 cm. This could be coagulated fluid suggesting chronicity. Recommend CT chest if clinically indicated. There is trivial pericardial effusion. Inferior Vena Cava Normal inferior vena cava with >50% collapse upon inspiration consistent with normal right atrial pressure, 5 mmHg. Aorta The aortic root size at the sinus of Valsalva is normal. Left Ventricular Outflow Tract Name Value Normal LVOT 2D LVOT Diameter 2.0 cm LVOT Doppler LVOT Peak Gradient 6 mmHg LVOT Mean Gradient 4 mmHg LVOT VTI
[2020-09-22] MEDS: VANCOMYCIN ORAL 125 MG/2.5 ML SYRUP PO ×2 (05:08→12:01)
[2020-09-22 07:51] LABS: Hematocrit 33.4 % (37.0-47.0); Hemoglobin 10.6 g/dL (12.0-15.0); Mean Corpuscular HGB Conc 31.7 g/dl (32-36); Mean Corpuscular Hemoglobin 27.3 pg (26-34); Mean Corpuscular Volume 86.1 fl (80-100); Mean Platelet Volume 10.3 fl (7.4-10.4); Platelet Count Result 138 k/mm3 (150-375); Red Blood Count 3.88 M/mm3 (4.2-5.4); Red Cell Distribution Width 17.1 % (11.5-14.5); White Blood Count 13.8 K/mm3 (4.5-10.0)
[2020-09-22 08:07] LABS: Alanine Aminotransferase 35 U/L (4-35); Albumin Level 2.4 g/dL (3.5-5.1); Alkaline Phosphatase 87 U/L (38-126); Anion Gap 3 mmol/L (8-16); Aspartate Amino Transferase 47 U/L (14-36); Bilirubin,Total 0.6 mg/dL (0.2-1.3); Blood Urea Nitrogen 21 mg/dL (7-17); Calcium 8.3 mg/dL (8.4-10.2); Carbon Dioxide 27 mmol/L (22-30); Chloride 106 mmol/L (98-107); Estimated CRCL calculation 73 ml/min; Estimated Glomerular Filt Rate > 60; Glucose 85 mg/dL (65-110); Potassium 4.3 mmol/L (3.4-5.0); Sodium 136 mmol/L (137-145)
[2020-09-22] MEDS: METOPROLOL SUCCINATE EXT REL 50 MG TABCR PO (08:54)
[2020-09-22] MEDS: FUROSEMIDE 40 MG TABLET PO (08:55)
[2020-09-22] MEDS: COLLAGENASE OINT 30 GM TUBE 1 APPLIC TOPICAL (08:55)
[2020-09-22] MEDS: MULTIVITAMINS THERAPEUTIC TAB (*BKC) 1 TABLET BY MOUTH (08:55)
[2020-09-22] MEDS: ENOXAPARIN 40 MG/0.4 ML SYRINGE SUB-Q (08:55)
[2020-09-22] MEDS: lisinopriL 20 MG TABLET 40 MG PO (08:55)
[2020-09-22] MEDS: METOPROLOL SUCCINATE EXT REL 12.5 MG TABCR PO (08:55)
[2020-09-22] MEDS: SPIRONOLACTONE 12.5 MG TABLET PO (08:55)
[2020-09-22] MEDS: FERROUS SULFATE 324 MG TABLET PO (08:55)
[2020-09-22] MEDS: LACTIC ACID 12% LOTION 225 BTL 1 APPLIC TOPICAL (08:55)
[2020-09-22] MEDS: SILVERGEL (ELTA) 45 ML 1 APPLIC TOPICAL (08:55)
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
--- NOTE | 2020-09-22 15:35 | PCPTNOTE ---
Attempted to see patient for PT, however patient refused. Patient reported she did not want to be messed with today.
[2020-09-22 17:01] LABS: Ammonia < 9 umol/L (9-30)
--- NOTE | 2020-09-22 17:53 | PC.NURSE ---
Patient is refusing to have any testing done until she speaks with her in person. Her did not think he would be able to make it in today, so the tests will be cancelled and reordered for tomorrow. Patient will be allowed to eat dinner and made NPO for breakfast in preparation for possible CTA
[2020-09-23] VITALS (8 sets, daily range): BP systolic 107–131; BP diastolic 65–84; PULSE 83–121; RESP 17–19; TEMP 35.7–36.2; O2SAT 93–96
[2020-09-23 06:13] LABS: Alanine Aminotransferase 34 U/L (4-35); Albumin Level 2.5 g/dL (3.5-5.1); Alkaline Phosphatase 100 U/L (38-126); Anion Gap 6 mmol/L (8-16); Aspartate Amino Transferase 40 U/L (14-36); Bilirubin,Total 0.4 mg/dL (0.2-1.3); Blood Urea Nitrogen 18 mg/dL (7-17); Calcium 8.3 mg/dL (8.4-10.2); Carbon Dioxide 28 mmol/L (22-30); Chloride 102 mmol/L (98-107); Estimated CRCL calculation 62 ml/min; Estimated Glomerular Filt Rate > 60; Glucose 77 mg/dL (65-110); Sodium 136 mmol/L (137-145)
[2020-09-23 06:57] LABS: Basophils Absolute Auto 0.1 K/mm3 (0.0-0.1); Basophils Percent Auto 0.4 % (0.2-1.2); Eosinophils Absolute Auto 0.5 K/mm3 (0-0.3); Hematocrit 33.9 % (37.0-47.0); Hemoglobin 10.7 g/dL (12.0-15.0); Immature Granulocyte Absolute 0.04 K/mm3 (0.00-0.031); Immature Granulocyte Percent A 0.3 % (0-0.5); Lymphocytes Absolute Auto 1.29 K/mm3 (0.9-3.2); Lymphocytes Percent Auto 11.2 % (18.3-44.2); Mean Corpuscular HGB Conc 31.6 g/dl (32-36); Mean Corpuscular Hemoglobin 26.9 pg (26-34); Mean Corpuscular Volume 85.2 fl (80-100); Mean Platelet Volume 10.8 fl (7.4-10.4); Monocytes Absolute Auto 1.5 K/mm3 (0.1-0.6); Monocytes Percent Auto 12.8 % (2.6-8.5); Neutrophils Absolute Auto 8.2 K/mm3 (1.3-6.7); Neutrophils Percent Auto 71.3 % (45.5-73.1); Platelet Count Result 152 k/mm3 (150-375); Red Blood Count 3.98 M/mm3 (4.2-5.4); Red Cell Distribution Width 17.1 % (11.5-14.5); White Blood Count 11.5 K/mm3 (4.5-10.0)
[2020-09-23] MEDS: ENOXAPARIN 40 MG/0.4 ML SYRINGE SUB-Q (09:05)
[2020-09-23] MEDS: FERROUS SULFATE 324 MG TABLET PO (09:06)
[2020-09-23] MEDS: SPIRONOLACTONE 25 MG TABLET PO (09:06)
[2020-09-23] MEDS: MULTIVITAMINS THERAPEUTIC TAB (*BKC) 1 TABLET BY MOUTH (09:06)
[2020-09-23] MEDS: FUROSEMIDE 40 MG TABLET PO (09:06)
[2020-09-23] MEDS: METOPROLOL SUCCINATE EXT REL 12.5 MG TABCR PO (09:06)
[2020-09-23] MEDS: lisinopriL 20 MG TABLET 40 MG PO (09:06)
[2020-09-23] MEDS: METOPROLOL SUCCINATE EXT REL 50 MG TABCR PO (09:06)
[2020-09-23] MEDS: LACTIC ACID 12% LOTION 225 BTL 1 APPLIC TOPICAL (09:08)
[2020-09-23] MEDS: COLLAGENASE OINT 30 GM TUBE 1 APPLIC TOPICAL (10:03)
--- NOTE | 2020-09-23 11:23 | PCPTNOTE ---
Attempted to see patient for PT at this time, however patient refused. Patient reported she just got done eating and does not want to move after she ate. Patient stated maybe later.
--- NOTE | 2020-09-23 12:50 | PCNFU ---
Nutrition Follow-Up Complete: Increased protein needs as related to wounds as evidenced by PU reported. goal: Adequate Intake of at least 75% of meals/supplements Patient as met current goal. No new goal. Pt current nutrition is 2 gm Na with Jose BID and Ensure compact BID Last recorded weight is 56.6 kg, no new weight to report. Bowel Motility:+BM reported 09/23 Labs Reviewed:Cr 0.6,BUN 18,Na 136,Alb 136,Hgb 10.7,Hct 33.9 Meds Noted:MVI, Lasix,Lovenox,Prinvil,Toprol. Additional Notes: Nutrition follow up. Patient is eating 100% of 2gm Na diet. Consuming diet supplements of Jose and Ensure. Skin: unstageable pressure ulcer on bilateral buttock. Agree with diet orders. Patient instruction attached. Monitoring: RD will monitor every 5 days.
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
[2020-09-24] VITALS (10 sets, daily range): BP systolic 112–121; BP diastolic 67–72; PULSE 92–130; RESP 18–20; TEMP 36.1–37.6; O2SAT 94–97
[2020-09-24 06:02] LABS: Hematocrit 30.9 % (37.0-47.0); Hemoglobin 9.7 g/dL (12.0-15.0); Mean Corpuscular HGB Conc 31.4 g/dl (32-36); Mean Corpuscular Hemoglobin 26.6 pg (26-34); Mean Corpuscular Volume 84.9 fl (80-100); Mean Platelet Volume 10.8 fl (7.4-10.4); Platelet Count Result 142 k/mm3 (150-375); Red Blood Count 3.64 M/mm3 (4.2-5.4); Red Cell Distribution Width 17.2 % (11.5-14.5); White Blood Count 11.6 K/mm3 (4.5-10.0)
[2020-09-24 06:18] LABS: Alanine Aminotransferase 34 U/L (4-35); Albumin Level 2.3 g/dL (3.5-5.1); Alkaline Phosphatase 94 U/L (38-126); Anion Gap 5 mmol/L (8-16); Aspartate Amino Transferase 42 U/L (14-36); Bilirubin,Total 0.4 mg/dL (0.2-1.3); Blood Urea Nitrogen 17 mg/dL (7-17); Calcium 7.8 mg/dL (8.4-10.2); Carbon Dioxide 24 mmol/L (22-30); Chloride 99 mmol/L (98-107); Estimated CRCL calculation 73 ml/min; Estimated Glomerular Filt Rate > 60; Glucose 81 mg/dL (65-110); Magnesium 1.6 mg/dL (1.6-2.3); Potassium 4.3 mmol/L (3.4-5.0); Sodium 128 mmol/L (137-145)
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
[2020-09-24] MEDS: ENOXAPARIN 40 MG/0.4 ML SYRINGE SUB-Q (08:33)
[2020-09-24] MEDS: METOPROLOL SUCCINATE EXT REL 12.5 MG TABCR PO (08:34)
[2020-09-24] MEDS: FUROSEMIDE 40 MG TABLET PO (08:34)
[2020-09-24] MEDS: lisinopriL 20 MG TABLET 40 MG PO (08:34)
[2020-09-24] MEDS: SPIRONOLACTONE 25 MG TABLET PO (08:34)
[2020-09-24] MEDS: FERROUS SULFATE 324 MG TABLET PO (08:34)
[2020-09-24] MEDS: MULTIVITAMINS THERAPEUTIC TAB (*BKC) 1 TABLET BY MOUTH (08:34)
[2020-09-24] MEDS: METOPROLOL SUCCINATE EXT REL 50 MG TABCR PO (08:34)
[2020-09-24] MEDS: COLLAGENASE OINT 30 GM TUBE 1 APPLIC TOPICAL (08:35)
[2020-09-24] MEDS: LACTIC ACID 12% LOTION 225 BTL 1 APPLIC TOPICAL (08:35)
--- NOTE | 2020-09-24 10:23 | PCOTNOTE ---
Attempted to see patient, patient declined at this time to participate in any ADLs or UB exercises or mobility. Patient to discharge today, however, will attempt patient later if time permits.
[2020-09-24] MEDS: ACETAMINOPHEN 325 MG TABLET 650 MG PO (15:39)
[2020-09-24 22:52] LABS: Mitochondrial (M2) Ab (IgG) <=20.0 U (<=20.0)
[2020-09-25] VITALS (9 sets, daily range): BP systolic 118–132; BP diastolic 65–80; PULSE 90–121; RESP 18; TEMP 36.2–36.5; O2SAT 96–98
[2020-09-25 06:25] LABS: Estimated CRCL calculation 73 ml/min; Estimated Glomerular Filt Rate > 60
[2020-09-25] MEDS: ENOXAPARIN 40 MG/0.4 ML SYRINGE SUB-Q (08:21)
[2020-09-25] MEDS: lisinopriL 20 MG TABLET 40 MG PO (08:22)
[2020-09-25] MEDS: FUROSEMIDE 40 MG TABLET PO (08:22)
[2020-09-25] MEDS: FERROUS SULFATE 324 MG TABLET PO (08:22)
[2020-09-25] MEDS: METOPROLOL SUCCINATE EXT REL 12.5 MG TABCR PO (08:23)
[2020-09-25] MEDS: MULTIVITAMINS THERAPEUTIC TAB (*BKC) 1 TABLET BY MOUTH (08:23)
[2020-09-25] MEDS: METOPROLOL SUCCINATE EXT REL 50 MG TABCR PO (08:23)
[2020-09-25] MEDS: SPIRONOLACTONE 25 MG TABLET PO (08:23)
[2020-09-25 10:30] LABS: Ceruloplasmin 27 mg/dL (18-53)
[2020-09-25] MEDS: COLLAGENASE OINT 30 GM TUBE 1 APPLIC TOPICAL (10:51)
[2020-09-25] MEDS: LACTIC ACID 12% LOTION 225 BTL 1 APPLIC TOPICAL (10:51)
[2020-09-25] MEDS: SILVERGEL (ELTA) 45 ML 1 APPLIC TOPICAL (10:52)
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
[2020-09-25 14:52] LABS: Alpha Fetoprotein Tumor Marker 3.8 ng/mL (<6.1)
--- NOTE | 2020-09-25 15:58 | PCPTNOTE ---
Attempted to see patient for PT at this time, however patient refused due to just getting cleaned up with nursing. Patient reported not right now, attempted to encourage patient to participate in LE exercises, patient stated no and patient seemed almost in tears.
[2020-09-26 06:00] VITALS: BP 137/79; PULSE 96; RESP 18; TEMP 36.1; O2SAT 96
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
[2020-09-26] MEDS: ENOXAPARIN 40 MG/0.4 ML SYRINGE SUB-Q (08:41)
[2020-09-26] MEDS: FERROUS SULFATE 324 MG TABLET PO (08:41)
[2020-09-26] MEDS: FUROSEMIDE 40 MG TABLET PO (08:41)
[2020-09-26] MEDS: SPIRONOLACTONE 25 MG TABLET PO (08:41)
[2020-09-26] MEDS: MULTIVITAMINS THERAPEUTIC TAB (*BKC) 1 TABLET BY MOUTH (08:41)
[2020-09-26] MEDS: COLLAGENASE OINT 30 GM TUBE 1 APPLIC TOPICAL (08:41)
[2020-09-26 08:42] VITALS: PULSE 112
[2020-09-26] MEDS: METOPROLOL SUCCINATE EXT REL 50 MG TABCR PO (08:42)
[2020-09-26] MEDS: lisinopriL 20 MG TABLET 40 MG PO (08:42)
[2020-09-26] MEDS: LACTIC ACID 12% LOTION 225 BTL 1 APPLIC TOPICAL (08:42)
[2020-09-26] MEDS: METOPROLOL SUCCINATE EXT REL 12.5 MG TABCR PO (08:42)
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
[2020-09-26 14:00] VITALS: BP 103/57; PULSE 106; RESP 18; TEMP 36.6; O2SAT 97
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
[2020-09-26 19:58] VITALS: BP 120/63; PULSE 107; RESP 18; TEMP 36.6; O2SAT 96
--- NOTE | 2020-09-26 21:00 | PC.NURSE ---
2100 Codey called to get update regarding estimated pickling operator time. Time had been pushed back to 2200
--- NOTE | 2020-09-26 21:07 | PC.NURSE ---
Covid swab obtained. Report given to Antwan WEST.
--- NOTE | 2020-09-26 22:08 | PC.NURSE ---
Pt discharged to [facility] via [facility]. Discharged packet and belongings verified in transport with patient. [facility] notified of patient en route.
== END 2020-09-26 22:00 | DRG 853 ==
LOC: ANHED 13:52 → ANH3MED 14:22
PROVIDERS: Emergency Medicine; Nurse Practitioner; Admitting Provider Internal Medicine; Emergency Provider Emergency Medicine; PCP Family Medicine Adolescent Medicine; Visit Provider Physician Assistant
DX: A41.9 Sepsis, unspecified organism (principal); L89.893 Pressure ulcer of other site, stage 3; G93.41 Metabolic encephalopathy; F05 Delirium due to known physiological condition; M62.82 Rhabdomyolysis; L03.119 Cellulitis of unspecified part of limb; T74.01XA Adult neglect or abandonment, confirmed, initial encounter; R18.8 Other ascites; L89.152 Pressure ulcer of sacral region, stage 2; L89.892 Pressure ulcer of other site, stage 2; Z68.22 Body mass index [BMI] 22.0-22.9, adult; F17.200 Nicotine dependence, unspecified, uncomplicated; I11.0 Hypertensive heart disease with heart failure; I50.9 Heart failure, unspecified; R53.1 Weakness; K74.60 Unspecified cirrhosis of liver; R91.8 Other nonspecific abnormal finding of lung field; R00.0 Tachycardia, unspecified; R19.7 Diarrhea, unspecified; Z79.899 Other long term (current) drug therapy
CPT/HCPCS: 36415; 49083; 70450; 71045; 71275; 73630; 76705; 80048; 80053; 80074; 80076; 80202; 81001; 82104; 82105; 82140; 82390; 82550; 82565; 82948; 83520; 83605; 83735; 84134; 85025; 85027; 85055; 85610; 85730; 86038; 86140; 87040; 87324; 93005; 93306; 96361; 96365; 96366; 96367; 96375; 96376; 97110; 97161; 97166; 97530; 97535; 99285; A9270; G0378; J0743; J1650; J2270; J2543; J3370; J3475; J7030; Q9967

== ENCOUNTER 2020-10-01 03:51 | Emergency (ER) | payer BC, SELFPAY ==
--- NOTE | ~2020-10-01 | CT_ITS ---
EXAMINATION: CT brain wo con DATE: 10/01/2020 05:47 INDICATION: Status post fall at [facility]. Patient on blood thinners. TECHNIQUE: Computed tomography (CT) of the head was performed without intravenous contrast. The dose- length product was 605.33 mGy-cm. Automated exposure control and iterative reconstruction technique w ere employed. COMPARISON: CT dated 09/13/2020 FINDINGS: There is an embolization coil left-sided the suprasellar cistern. Brain parenchymal volume is normal for age. There are scattered mild periventricular and subcortical white matter changes, mos t likely related to small vessel ischemic disease (microangiopathy). Hypodensity left basal ganglia, likely prominent perivascular space. No acute intracranial hemorrhage, infarction, mass or mass effec t. Paranasal sinuses and mastoids are pneumatized. No depressed skull fractures. IMPRESSION: 1. No acute intracranial abnormality. No significant interval change. Reviewed, dictated and finalized at location A.
[2020-10-01 05:20] VITALS: BP 103/76; PULSE 120; RESP 15; TEMP 36.7; O2SAT 100
--- NOTE | 2020-10-01 05:23 | ED.GENADULT ---
HPI - General Adult General Chief complaint: Fall Stated complaint: Fall??? Time Seen by Provider: 10/01/20 05:15 History of Present Illness HPI narrative: Patient is a 64-year-old female that presents the emergency department with chief complaint of fall. Patient is currently in a longterm and states she was walking and either lost her footing or slipped on the floor. The patient states that she fell and landed on her bottom and reports that she then fell to the floor. The patient states she called for the nurses help and reports that she had no loss of consciousness. Patient states that currently she has no pain the patient was sent to the emergency department because she had fallen and is on a dose of Lovenox per the longterm staff. Patient currently has no complaints Related Data Home Medications Medication Instructions Recorded Confirmed ferrous sulfate 325 mg PO DAILY 09/13/20 09/13/20 furosemide 40 mg PO DAILY 09/13/20 09/13/20 lisinopril 40 mg PO DAILY 09/13/20 09/13/20 metoprolol succinate 50 mg PO DAILY 09/13/20 09/13/20 multivitamin 1 tablet PO DAILY 09/13/20 09/13/20 oxybutynin chloride 10 mg PO DAILY 09/13/20 09/13/20 Allergies Allergy/AdvReac Type Severity Reaction Status Date / Time atorvastatin Allergy Unknown Unknown Verified 10/01/20 05:22 Sulfa (Sulfonamide Allergy Unknown Unknown Verified 10/01/20 05:22 Antibiotics) Review of Systems Review of Systems: A 10 system review of systems was completed on the patient and is negative except for what is stated in the HPI. Nursing and ancillary documentation was reviewed. [facility] Past Medical History Medical History Brain bleed Hypertension Surgical History Surgical History Status post coil embolization of cerebral aneurysm Surgical history unknown Family History Family History Father Family history of suicide Mother Family history of malignant neoplasm Social History Social History Smoking status: Unknown if ever smoked Second hand tobacco smoke exposure: Yes Smoking end date: 02/14/13 Alcohol intake: unknown Substance use: unknown Substance use type: marijuana Gender identity (if verbalized by the patient): Female Spiritual care concerns: No Exam Narrative: GENERAL: Well-appearing, well-nourished, and in no acute distress. HEAD: Normocephalic, atraumatic. EYES: PERRLA and EOMI. ENT: Nares clear, no rhinorrhea or epistaxis. Mucous membranes moist. NECK: Supple. CHEST: Clear to auscultation. No respiratory distress. HEART: Regular rate and rhythm. No murmur heard. Normal peripheral pulses. ABDOMEN: Soft, nontender, nondistended, normal active bowel sounds. EXTREMITIES: Normal range of motion. No edema. There is a dressing present on the right lower extremity. SKIN: Warm, dry, no rash. NEURO: No focal deficits. Alert and oriented x3. PSYCH: Normal mood and affect. Course Vital Signs Vital signs: Vital Signs Temperature 36.7 C 10/01/20 05:20 Pulse Rate 120 H 10/01/20 05:20 Respiratory Rate 15 10/01/20 05:20 Blood Pressure 103/76 10/01/20 05:20 Pulse Oximetry 100 10/01/20 05:20 Temperature 36.7 C 10/01/20 05:20 Pulse Rate 114 H 10/01/20 06:28 Respiratory Rate 16 10/01/20 06:28 Blood Pressure 100/71 10/01/20 06:28 Pulse Oximetry 99 10/01/20 06:28 Medical Decision Making Vital Signs Vital Signs: Vital Signs Temperature 36.7 C 10/01/20 05:20 Pulse Rate 120 H 10/01/20 05:20 Respiratory Rate 15 10/01/20 05:20 Blood Pressure 103/76 10/01/20 05:20 Pulse Oximetry 100 10/01/20 05:20 Temperature 36.7 C 10/01/20 05:20 Pulse Rate 114 H 10/01/20 06:28 Respiratory Rate 16 10/01/20 06:28 Blood Pres
[2020-10-01 06:28] VITALS: BP 100/71; PULSE 114; RESP 16; O2SAT 99
== END 2020-10-01 11:22 ==
PROVIDERS: Emergency Provider Emergency Medicine; PCP Family Medicine Adolescent Medicine
DX: S09.90XA Unspecified injury of head, initial encounter (principal); I10 Essential (primary) hypertension; Z77.22 Contact with and (suspected) exposure to environmental tobacco smoke (acute) (chronic); W01.0XXA Fall on same level from slipping, tripping and stumbling without subsequent striking against object, initial encounter
CPT/HCPCS: 70450; 99284

== ENCOUNTER 2024-12-22 18:58 | Emergency (ER) | payer MEDICARE, MEDICAID, SELFPAY ==
[2024-12-22] VITALS (31 sets, daily range): BP systolic 84–118; BP diastolic 37–83; PULSE 72–137; RESP 12–26; TEMP 36.5; O2SAT 86–100
--- NOTE | ~2024-12-22 | XR_ITS ---
Examination: XR chest 1V portable Clinical History: ams Comparison: CTA chest 09/23/2020 Technique: Portable AP Findings: Heart size normal. Lungs clear. No acute bony abnormality. IMPRESSION: 1. No acute cardiopulmonary findings given portable technique. Reviewed, dictated and finalized at location R. ER CARRIER
--- NOTE | ~2024-12-22 | CT_ITS ---
CT HEAD NON-CONTRAST Clinical History: ams Comparison: 10/01/2020 Technique: Unenhanced axial images skull base to vertex Coronal, sagittal reformats CT images acquired with automatic exposure control for dose reduction DLP: 681 mGy-cm Findings: Aneurysm coils region of left carotid terminus. Associated streak artifact could obscure regional abnormality. Mild white matter microvascular ischemic changes. Sulci, ventricles: Unremarkable. No intracerebral hemorrhage. No evidence acute territorial infarct. No mass effect, midline shift. Bony calvarium intact. Visualized paranasal sinuses: Clear. Mastoid air cells: Clear. IMPRESSION: 1. No acute intracranial findings. Reviewed, dictated and finalized at location R. NOLOGY ARCHITECT
--- NOTE | 2024-12-22 19:20 | ECG_ITS ---
Test Date: 2024-12-22 19:50:29 Measurements Intervals [place] Rate: 77 P: 53 DE: 149 QRS: 35 QRSD: 92 T: 10 QT: 406 QTc: 460 Interpretive Statements SINUS RHYTHM NONSPECIFIC ST & T-WAVE ABNORMALITY ABNORMAL ECG No previous ECG available for comparison Electronically Signed On 12-23-2024 08:40:53 HEAT TREATER by Carmelo Brown M.D.
--- NOTE | 2024-12-22 19:34 | ED.AMS ---
HPI - Altered Mental Status General Chief Complaint: Altered Mental Status Stated Complaint: Increasingly altered since this am Source: EMS Mode of arrival: EMS Limitations: altered mental status History of Present Illness HPI narrative: This is a 69-year-old female who presents the ED from [facility] for altered mental status. Per EMS, patient is normally AAO x4 but is only A/O x2 today. Patient is unable to contribute much more to history but denies any pains at this time. She states that she is told that she has been confused today but is unsure what is happening. Related Data Home Medications ?Medication ?Instructions ?Recorded ?Confirmed ?Last Taken ?Type ferrous sulfate 325 mg (65 mg 325 mg PO DAILY 09/13/20 09/13/20 Unknown History iron) tablet furosemide 20 mg tablet 40 mg PO DAILY 09/13/20 09/13/20 Unknown History lisinopril 40 mg tablet 40 mg PO DAILY 09/13/20 09/13/20 Unknown History metoprolol succinate 50 mg 50 mg PO DAILY 09/13/20 09/13/20 Unknown History tablet,extended release 24 hr multivitamin 1 tablet PO DAILY 09/13/20 09/13/20 Unknown History oxybutynin chloride 10 mg 10 mg PO DAILY 09/13/20 09/13/20 Unknown History tablet,extended release 24 hr Allergies Allergy/AdvReac Type Severity Reaction Status Date / Time atorvastatin Allergy Unknown Unknown Verified 12/22/24 19:08 Sulfa (Sulfonamide Allergy Unknown Unknown Verified 12/22/24 19:08 Antibiotics) Review of Systems Review of Systems: ROS unobtainable: Yes unobtainable due to mental status PMFSH Past Medical History Medical History Brain bleed Hypertension Surgical History Surgical History Status post coil embolization of cerebral aneurysm Surgical history unknown Family History Family History Father Family history of suicide Mother Family history of malignant neoplasm Social History Social History Second hand tobacco smoke exposure: Yes Smoking end date: 02/14/13 Alcohol intake: unknown Substance use: unknown Substance use type: marijuana Gender identity (if verbalized by the patient): Female Spiritual care concerns: No Exam Narrative: APPEARANCE: No acute distress, nontoxic, resting in bed EYES: EOMI HEENT: Normocephalic, atraumatic, OMM RESPIRATORY: No respiratory distress Clear to auscultation bilaterally with no rhonchi wheezing or rales. CARDIOVASCULAR: Regular rate and rhythm without murmurs rubs or gallops. ABDOMINAL: Soft, nontender, nondistended, no rebound or guarding MUSCULOSKELETAl: Moves all extremities. No clubbing, cyanosis or edema. NEURO: AAO times 2-3. Following commands, speech normal, no focal deficits SKIN:: Warm, dry. No rashes lesions or abrasions PSYCHIATRIC: Normal affect/mood, Course Vital Signs Vital signs: Vital Signs Temperature 97.7 F 12/22/24 19:03 Pulse Rate 84 12/22/24 19:03 Respiratory Rate 16 12/22/24 19:03 Blood Pressure 96/54 L 12/22/24 19:03 Pulse Oximetry 98 12/22/24 19:03 Oxygen Delivery Room Air 12/22/24 19:03 Temperature 97.7 F 12/22/24 19:03 Pulse Rate 70 12/23/24 01:29 Respiratory Rate 20 12/22/24 23:20 Blood Pressure 112/62 12/23/24 01:29 Pulse Oximetry 99 12/22/24 23:20 Oxygen Delivery Room Air 12/22/24 19:53 MDM - Altered Mental Status MDM Narrative Medical decision making narrative: 69-year-old female Presenting for altered mental status. On initial evaluation patient was in no acute distress afebrile, hemodynamic stable. Differentials include but are not limited to: CVA, TIA, ICH, meningitis, UTI, cancer, drug intoxication, hypoglycemia, electrolyte abnormality Notable exam findings: Heart and lungs clear. Abdomen soft and nontender. No skin findings. Notable lab findings: Mild anemia at 9.2 which is her baseline. Thrombocytopenia at 81 which is decreased from prior 4 years ago at 142. Creatinine mildly elevated at 1.06. BUN elevated at 40. UA was not consistent with a UTI per Notable imaging findings: Chest x-ray showed no acute process. CT head showed no acute process. During patient's ED stay, she did flip into AFib with RVR with rate in the 160s to 170s. Blood pressures were borderline but initially stable so she was given Cardizem 15 mg. She had subsequent improvement of her heart rate to the 120s but blood pressure dropped to a map in the 50s so she was given an additional 1 L NS bolus. She was started on amiodarone bolus and drip. She did subsequently convert to normal sinus rhythm. Per documentation review of alf records and our records, patient does not have a history of AFib. I did discuss case with Dr. Etienne, hospitalist, does recommend checking magnesium and rebleeding if necessary. If after some monitoring she remains in normal sinus she can be discharged from her standpoint. Patient remained in normal sinus rhythm. Magnesium was 1.8 and she was prophylactically repleted. Patient was deemed appropriate for discharge at this time. She was advised follow-up with her PCP in the next week for re-evaluation. Patient was agreeable to this plan. Given strict return precautions. CRITICAL CARE Indication: AFib with RVR Time type: intermittent I provided a total of 55 minutes of critical care excluding separately billable procedures. This includes time w/ EMS, initial bedside evaluation, reviewing old records, review of testing done while under my care, discussion w/ the family, nurses, vocational rehabilitation consultant and guiding the patient?s care while in the emergency department. Approximate time distribution: 15 minutes ? Initial evaluation, d/w involved parties, attempting to gather old records. 10 minutes ? Documenting medical record 10 minutes ? Review of results (EKGs, labs, imaging) 10 minutes ? Serial repeat bedside evaluation 10 minutes ? Discussing case with multiple providers Medical Records Attestation: I reviewed the patient's medical records. Lab Data Attestation: I reviewed the patient's lab results. 12/22/24 19:37 12/22/24 19:37 Labs: Lab Results 12/22/24 12/22/24 12/22/24 Range/Units 19:37 22:18 22:33 WBC 6.9 (4.5-10.0) K/mm3 RBC 3.14 L (4.2-5.4) M/mm3 Hgb 9.2 L (12.0-15.0) g/dL Hct 28.8 L (37.0-47.0) % MCV 91.7 (80-100) fl MCH 29.3 (26-34) pg MCHC 31.9 L (32-36) g/dl RDW 17.2 H (11.5-14.5) % Plt Count 81 L (150-375) k/mm3 MPV 12.1 H (7.4-10.4) fl Immature Gran % (Auto) Not Reportable Neut % (Auto) Not Reportable Lymph % (Auto) Not Reportable [place] % (Auto) Not Reportable Eos % (Auto) Not Reportable Baso % (Auto) Not Reportable Lymph # (Auto) Not Reportable [place] # (Auto) Not Reportable Eos # (Auto) Not Reportable Baso # (Auto) Not Reportable Abs Immat Gran (auto) Not Reportable Absolute Neuts (auto) Not Reportable Absolute Nucleated RBC Not Reportable Total Counted 100 Neutrophils % (Manual) 85 H (46-73) % Band Neutrophils % 0 (0-6) % Lymphocytes % (Manual) 8.0 L (18-44) % Monocytes % (Manual) 3 (3-9) % Eosinophils % (Manual) 4 (0-4) % Nucleated RBC % Not Reportable Abs Neuts (Manual) 5.86 (1.3-6.7) K/mm3 Abs Lymphs (Manual) 0.55 L (1.1-4.5) K/mm3 Abs Monocytes (Manual) 0.20 (0.1-0.90) K/mm3 Absolute Eos (Manual) 0.27 (0.02-0.50) K/mm3 Platelet Estimate Decreased (Adequate) % Immature Plt Fraction 7.5 (0.9-11.2) % Hypochromasia 1+ Anisocytosis 2+ Schistocytes Rare Sodium 143 (137-145) mmol/L Potassium 4.0 (3.4-5.0) mmol/L Chloride 112 H (98-107) mmol/L Carbon Dioxide 20 L (22-30) mmol/L Anion Gap 11 (4-12) mmol/L BUN 40 H D (7-17) mg/dL Creatinine 1.06 H (0.7-1.0) mg/dL Estim Creat Clear Calc 36 ml/min Estimated GFR 51 L (59 - ) Glucose 161 H (65-110) mg/dL POC Capillary Glucose 161 H (65-105) mg/dl Calcium 9.3 (8.4-10.2) mg/dL Magnesium 1.9 (1.6-2.3) mg/dL Total Bilirubin 1.0 (0.2-1.3) mg/dL AST 36 (14-36) U/L ALT 31 (6-35) U/L Alkaline Phosphatase 50 (38-126) U/L Troponin I 0.029 0.031 (0.000-0.034) ng/mL NT-Pro-B Natriuret Pep 106 H (19.9-100) pg/mL Total Protein 7.1 (6.3-8.2) g/dL Albumin 3.8 (3.5-5.1) g/dL Urine Color Yellow (Yellow) Urine Appearance Clear (Clear) Urine pH 5.0 (5.0-9.0) Ur Specific [place] 1.022 (1.001-1.035) Urine Protein Negative (Negative) mg/dL Urine Glucose (UA) Negative (Negative) mg/dL Urine Ketones Trace H (Negative) mg/dL Ur Blood (Man) Negative (Negative) Urine Nitrate Negative (Negative) Urine Bilirubin Negative (Negative) Urine Urobilinogen 1.0 (<2.0) mg/dL Leukocyte Esterase Rfl 1+ H (Negative) CHANDLER/UL Urine RBC 0-2 (0-2) /hpf Urine WBC 6-10 H (0-3) /hpf Ur Squamous Epith Cells None seen (Few) /hpf Urine Bacteria None seen /hpf Urine Casts 0-2 Imaging Data Attestation: I personally reviewed and interpreted this imaging study as follows: My impression: Chest x-ray: Normal cardiac silhouette, no consolidations, no pleural effusions, no pulmonary vascular congestion Radiologist's impression: CT head: No acute intracranial abnormalities ECG Data EKG #1: Attestation: I personally reviewed and interpreted this ECG as follows: ECG completion date: 12/22/24 ECG completion time: 19:50 Interpretation: Normal sinus rhythm rate of 77, normal axis normal intervals, nonspecific ST or T-wave changes EKG #2: Attestation: I personally reviewed and interpreted this ECG as follows: ECG completion date: 12/22/24 ECG completion time: 20:22 Interpretation: AFib with RVR rate of 157, normal axis, ST depressions in inferior leads, ST depressions in V4 through V6 EKG #3: Attestation: I personally reviewed and interpreted this ECG as follows: ECG completion date: 12/22/24 ECG completion time: 22:22 Interpretation: Normal sinus rhythm rate of 77, normal axis, normal intervals, no acute ST or T-wave changes. Comparison from prior: AFib with RVR has resolved, ST and T-wave changes have resolved. Discharge Plan Discharge Clinical Impression: Atrial fibrillation with rapid ventricular response, Acute urinary retention Patient Disposition: Home Condition: Stable Instructions: Antibiotic Form, A-fib (Atrial Fibrillation) (ED) Additional Instructions: Continue to take your metoprolol as prescribed. Follow up with your PCP in the next week for reevaluation. Return to the ED for new or worsening symptoms. Patient Language: Bulgarian Prescriptions: No Action multivitamin Tablet 1 tablet PO DAILY oxybutynin chloride 10 mg Tablet Extended Release 24hr 10 mg PO DAILY metoprolol succinate 50 mg Tablet Extended Release 24 Hr 50 mg PO DAILY ferrous sulfate 325 mg (65 mg iron) Tablet 325 mg PO DAILY furosemide 20 mg Tablet 40 mg PO DAILY lisinopril 40 mg Tablet 40 mg PO DAILY Santyl 250 unit/gram Ointment 1 applic topical QAM Qty: 90 0RF Lac-Hydrin Five 5 % Lotion 1 applic topical QAM Qty: 226 0RF lisinopril 20 mg Tablet 40 mg PO QAM Qty: 30 0RF Aloe [place] Antifungal (micon) 2 % Ointment 1 applic topical Q12HR Qty: 1692 0RF Silver-Sept 200 mcg/gram Gel 1 applic topical Q72HR Qty: 90 0RF spironolactone 25 mg Tablet 25 mg PO QAM Qty: 30 0RF Follow-up/Referrals: William Mora MD [Primary Care Provider, Family Practice]
[2024-12-22] MEDS: SODIUM CHLORIDE 0.9% IV 1,000 ML 999 ML IV CONT ×2 (19:45→23:28)
[2024-12-22 19:53] LABS: Hematocrit 28.8 % (37.0-47.0); Hemoglobin 9.2 g/dL (12.0-15.0); Immature Platelet Fraction Pct 7.5 % (0.9-11.2); Mean Corpuscular HGB Conc 31.9 g/dl (32-36); Mean Corpuscular Hemoglobin 29.3 pg (26-34); Mean Corpuscular Volume 91.7 fl (80-100); Platelet Count Result 81 k/mm3 (150-375); Red Blood Count 3.14 M/mm3 (4.2-5.4); White Blood Count 6.9 K/mm3 (4.5-10.0)
[2024-12-22 20:05] LABS: Alanine Aminotransferase 31 U/L (6-35); Albumin Level 3.8 g/dL (3.5-5.1); Alkaline Phosphatase 50 U/L (38-126); Anion Gap 11 mmol/L (4-12); Aspartate Amino Transferase 36 U/L (14-36); Bilirubin,Total 1.0 mg/dL (0.2-1.3); Blood Urea Nitrogen 40 mg/dL (7-17); Calcium 9.3 mg/dL (8.4-10.2); Carbon Dioxide 20 mmol/L (22-30); Chloride 112 mmol/L (98-107); Estimated CRCL calculation 36 ml/min; Estimated Glomerular Filt Rate 51; Glucose 161 mg/dL (65-110); Potassium 4.0 mmol/L (3.4-5.0); Sodium 143 mmol/L (137-145); Total Protein 7.1 g/dL (6.3-8.2)
[2024-12-22 20:14] LABS: NT Pro B Type Natriuretic Pept 106 pg/mL (19.9-100); Troponin I 0.029 ng/mL (0.000-0.034)
[2024-12-22 20:18] LABS: Eosinophils Absolute Manual 0.27 K/mm3 (0.02-0.50); Eosinophils Percent Manual 4 % (0-4); Hypochromasia 1+; Lymphocytes Absolute Manual 0.55 K/mm3 (1.1-4.5); Lymphocytes Percent Manual 8.0 % (18-44); Monocytes Absolute Manual 0.20 K/mm3 (0.1-0.90); Monocytes Percent Manual 3 % (3-9); Neutrophils Percent Manual 85 % (46-73); Total Cells Counted 100
--- NOTE | 2024-12-22 20:18 | ECG_ITS ---
Test Date: 2024-12-22 20:22:03 Measurements Intervals [place] Rate: 157 P: 0 VA: 0 QRS: 36 QRSD: 91 T: 230 QT: 266 QTc: 431 Interpretive Statements ATRIAL FIBRILLATION WITH RAPID VENTRICULAR RESPONSE ST DEVIATION AND MODERATE T-WAVE ABNORMALITY, CONSIDER LATERAL ISCHEMIA [-0.1+ mV T-WAVE IN I/aVL/V5/V6] ST DEVIATION AND MODERATE T-WAVE ABNORMALITY, CONSIDER INFERIOR ISCHEMIA [-0.1+ mV T-WAVE IN II/aVF] ABNORMAL ECG Compared to ECG 12/22/2024 19:50:29 Possible ischemia now present Sinus rhythm no longer present T-wave abnormality still present Electronically Signed On 12-23-2024 08:41:17 INTERNAL AUDIT CONSULTANT by Carmelo Brown M.D.
[2024-12-22 20:19] LABS: Anisocytosis 2+
[2024-12-22 20:20] LABS: Schistocytes Rare
[2024-12-22 20:21] LABS: Band Neutrophils Percent 0 % (0-6); Neutrophils Absolute Manual 5.86 K/mm3 (1.3-6.7)
--- NOTE | 2024-12-22 22:18 | ECG_ITS ---
Test Date: 2024-12-22 22:22:46 Measurements Intervals [place] Rate: 77 P: 67 TN: 147 QRS: 42 QRSD: 92 T: 14 QT: 399 QTc: 454 Interpretive Statements SINUS RHYTHM WITH OCCASIONAL SUPRAVENTRICULAR PREMATURE COMPLEXES NONSPECIFIC ST & T-WAVE ABNORMALITY ABNORMAL ECG Compared to ECG 12/22/2024 20:22:03 Atrial fibrillation no longer present Possible ischemia no longer present T-wave abnormality still present Electronically Signed On 12-23-2024 08:43:41 PIPE CHANGER by Carmelo Brown M.D.
[2024-12-22 22:30] LABS: Add Urine Microscopic? YES; Appearance Urine Clear (Clear); Glucose Urine UA Negative (Negative); Leukocyte Esterase Ur 1+ LEU/UL (Negative); Nitrate Urine Negative (Negative); Non Pathogenic Casts 0-2; Specific Grav Ur 1.022 (1.001-1.035)
[2024-12-22 23:01] LABS: Troponin I 0.031 ng/mL (0.000-0.034)
[2024-12-22 23:44] LABS: Magnesium 1.9 mg/dL (1.6-2.3)
[2024-12-23] VITALS (18 sets, daily range): BP systolic 102–121; BP diastolic 62–88; PULSE 67–81; RESP 10–28; O2SAT 74–100
[2024-12-23] MEDS: MAGNESIUM SULF 2 GM/WATER 50ML 2 GM/50 ML BAG IVPB (00:35)
--- NOTE | 2025-01-31 14:06 | PC.NURSE ---
LATE ENTRY This note is being entered to document information to the patient's record. The following information was omitted on [12/22/24 ], by [caitlin Fuller RN]. Magnesium stop time is 030am
== END 2024-12-23 02:26 ==
PROVIDERS: Emergency Provider Student in an Organized Health Care Education/Training Program; PCP Family Medicine Adolescent Medicine
DX: I48.91 Unspecified atrial fibrillation (principal); R33.9 Retention of urine, unspecified; I10 Essential (primary) hypertension; Z87.891 Personal history of nicotine dependence; Z79.899 Other long term (current) drug therapy; I49.1 Atrial premature depolarization; R94.31 Abnormal electrocardiogram [ECG] [EKG]
CPT/HCPCS: 36415; 70450; 71045; 80053; 81001; 82948; 83735; 83880; 84484; 85025; 85055; 87086; 93005; 96365; 96375; 99284; J0283; J1163; J3475; J7030